=== PATIENT | male | born 2000 | race African-American/Black ===

== ENCOUNTER 2022-09-19 16:53 | Emergency (ER) | payer SELFPAY ==
[~2022-09-19] VITALS: Ht 182.9 cm; Wt 106.0 kg
[2022-09-19 18:41] VITALS: BP 135/82
[2022-09-19 18:46] VITALS: BP 116/68
[2022-09-19] MEDS ORDERED: PROTONIX40 M2 PO (18:58)
[2022-09-19 19:02] VITALS: BP 122/70
[2022-09-19 19:07] VITALS: BP 122/70
== END 2022-09-19 19:12 | disposition home or self-care (01) | DRG 392 ==
LOC: ED 16:53
DX: K21.9 Gastro-esophageal reflux disease without esophagitis (principal); R07.89 Other chest pain